=== PATIENT | female | born 1955 | race African-American/Black ===

== ENCOUNTER 2017-11-24 20:32 | Emergency (ER) | payer MEDICAID, OTHER ==
[~2017-11-24] VITALS: Ht 175.3 cm; Wt 83.0 kg
[2017-11-24] MEDS ORDERED: SODIUM CHLORIDE 0.9% 1,000 ML IV ONE (22:13)
[2017-11-24 22:56] LABS: BASOPHILS % 1.3 % (0.0-2.0); EOSINOPHILS % 4.1 % (0.0-5.0); HEMATOCRIT. 31.4 % (36.0-48.0); HEMOGLOBIN. 10.2 g/dL (12.0-16.0); LYMPHOCYTES % 25.6 % (20.0-50.0); MEAN CORPUSCULAR HEMOGLOBIN 30.3 pg (28.0-32.0); MEAN CORPUSCULAR VOLUME 93.3 fL (81.0-99.0); MEAN PLATELET VOLUME 8.2 fl (7.4-10.4); MONOCYTES % 8.1 % (2.0-8.0); NEUTROPHILS % 60.9 % (40.0-76.0); PLATELET 356 x1000/uL (130-400); RED BLOOD CELL COUNT 3.36 mill/uL (4.2-5.4); RED CELL DISTRIBUTION WIDTH 15.2 % (11.6-14.6)
[2017-11-24 23:03] LABS: CARBON DIOXIDE 21 mEq/L (21-32); CHLORIDE 108 mEq/L (98-107)
[2017-11-24] MEDS ORDERED: LORAZEPAM 0.5MG TABLET PO ONE (23:15)
[2017-11-24 23:53] LABS: CLARITY URINE CLEAR (CLEAR); COLOR URINE YELLOW (YELLOW); KETONES URINE NEGATIVE (NEGATIVE); LEUKOCYTE ESTERASE URINE 1+ (NEGATIVE); NITRITE URINE POSITIVE (NEGATIVE); OCCULT BLOOD URINE NEGATIVE (NEGATIVE); PROTEIN URINE NEGATIVE (NEGATIVE); SPECIFIC GRAVITY URINE 1.012 (1.005-1.030); UROBILINOGEN URINE 0.2 E.U./dL (0.2-1.0)
[2017-11-25] MEDS ORDERED: IPRATROPIUM/ALBUTEROL 0.5-3(2.5)MG/3ML NEB HHN NR (02:00)
[2017-11-25] MEDS ORDERED: CEFTRIAXONE 1 G PREMIX 50 ML IV NR (02:00)
[2017-11-25 05:55] VITALS: BP 104/63
== END 2017-11-25 06:02 | disposition home or self-care (01) ==
LOC: ER 20:52
DX: R04.0 Epistaxis (principal); D64.9 Anemia, unspecified; I10 Essential (primary) hypertension; N28.9 Disorder of kidney and ureter, unspecified; J44.9 Chronic obstructive pulmonary disease, unspecified; Z87.891 Personal history of nicotine dependence
CPT/HCPCS: 30901; 36415; 80053; 81001; 85025; 85610; 86850; 86900; 86901; 87077; 87086; 87186; 93005; 94640; 96361; 96365; 96366; 99285; J0696; J7030; J7620

== ENCOUNTER 2024-09-12 12:53 | Emergency (ER) | payer MEDICARE, MEDICAID ==
[~2024-09-12] VITALS: Ht 170.2 cm; Wt 74.0 kg
[2024-09-12 13:04] VITALS: BP 209/92; TEMP 98.6; O2SAT 91
[2024-09-12 13:08] VITALS: PULSE 113; O2SAT 91
== END 2024-09-12 23:13 | disposition left against medical advice (07) ==
LOC: ER 13:50
DX: R07.9 Chest pain, unspecified (principal); Z99.2 Dependence on renal dialysis; Z53.21 Procedure and treatment not carried out due to patient leaving prior to being seen by health care provider
CPT/HCPCS: 93005

== ENCOUNTER 2025-03-20 05:06 | Inpatient (IN) | payer MEDICARE, MEDICAID ==
[2025-03-20] VITALS (20 sets, daily range): BP systolic 116–190; BP diastolic 62–111; PULSE 71–95; RESP 16–29; TEMP 36.22512–36.9; O2SAT 89–100
[~2025-03-20] VITALS: Ht 160 cm; Wt 74.4 kg
[2025-03-20] MEDS ORDERED: METHYLPREDNISOLONE SOD SUCC 125MG/2ML (ACT-O-VIAL) IV STA (05:11)
[2025-03-20] MEDS ORDERED: IPRATROPIUM BROMIDE (0.02%) 0.5MG/2.5ML NEB HHN STA (05:25)
[2025-03-20] MEDS ORDERED: ALBUTEROL (0.083%) 2.5MG/3ML NEB HHN SCH (05:30)
[2025-03-20] MEDS: SODIUM CHLORIDE 0.9% (SEPSIS BOLUS) IV ONE (05:47)
[2025-03-20] MEDS: CEFTRIAXONE 1GM/50ML 50 ML IV ONE (05:50)
[2025-03-20 06:08] LABS: BASOPHILS % 0.6 % (0.0-2.0); DIFFERENTIAL COMMENT 0; EOSINOPHILS % 0.5 % (0.0-5.0); HEMATOCRIT. 23.1 % (36.0-48.0); HEMOGLOBIN. 7.6 g/dL (12.0-16.0); LYMPHOCYTES % 32.2 % (20.0-50.0); MEAN CORPUSCULAR HEMOGLOBIN 33.5 pg (28.0-32.0); MEAN CORPUSCULAR HGB CONC 33.1 g/dL (31.0-37.0); MEAN CORPUSCULAR VOLUME 101.3 fL (81.0-99.0); MEAN PLATELET VOLUME 9.3 fl (7.4-10.4); MONOCYTES % 3.7 % (2.0-8.0); PLATELET 211 x1000/uL (130-400); RED BLOOD CELL COUNT 2.28 mill/uL (4.2-5.4); RED CELL DISTRIBUTION WIDTH 15.2 % (11.6-14.6); WHITE BLOOD COUNT 8.8 x1000/uL (4.5-11.0)
[2025-03-20 06:17] LABS: CHLORIDE 99 mEq/L (98-107); POTASSIUM 4.6 mEq/L (3.5-5.1); SODIUM 140 mEq/L (136-145)
[2025-03-20 06:18] LABS: CALCIUM 8.3 mg/dL (8.7-10.4); CARBON DIOXIDE 24 mEq/L (21-32); PROTHROMBIN TIME 10.3 sec (9.6-11.0)
[2025-03-20 06:23] LABS: GLUCOSE 203 mg/dL (70-105); UREA NITROGEN BLOOD 52 mg/dL (9-23)
[2025-03-20] MEDS: IPRATROPIUM BROMIDE (0.02%) 0.5MG/2.5ML NEB HHN STA (06:41)
[2025-03-20] MEDS: AZITHROMYCIN 500MG/250ML 250 ML IV ONE (06:41)
[2025-03-20] MEDS: ALBUTEROL (0.083%) 2.5MG/3ML NEB HHN STA (06:52)
[2025-03-20 06:53] LABS: LACTIC ACID 4.7 mmol/L (0.4-2.0)
[2025-03-20 06:54] LABS: CREATININE 9.3 mg/dL (0.6-1.0); TROPONIN I HIGH SENSITIVITY 480 ng/L (3.0-34)
[2025-03-20] MEDS ORDERED: MAGNESIUM/ALUMINUM HYDROXIDE/SIMETHICONE 30ML UDC PO PRN (09:00)
[2025-03-20] MEDS ORDERED: IPRATROPIUM/ALBUTEROL 0.5-3(2.5)MG/3ML NEB HHN PRN (09:00)
[2025-03-20] MEDS ORDERED: DOCUSATE SODIUM 100MG CAPSULE PO PRN (09:00)
[2025-03-20] MEDS ORDERED: ACETAMINOPHEN 325MG TABLET PO PRN (09:00)
[2025-03-20] MEDS ORDERED: CLONIDINE 0.1MG TABLET PO PRN (09:00)
[2025-03-20] MEDS ORDERED: GUAIFENESIN 200MG/10ML SUGAR FREE UDC PO PRN (09:00)
[2025-03-20] MEDS ORDERED: ONDANSETRON HCL 4MG/2ML INJ IV PRN (09:00)
[2025-03-20] MEDS ORDERED: DIPHENHYDRAMINE 50MG/ML VIAL IV PRN (09:00)
[2025-03-20 09:38] LABS: BG BASE EXCESS -0.7 mmol/L (-2.0-3.0); BG CARBOXYHEMOGLOBIN 2.4 % (0.5-1.5); BG DEOXYHEMOGLOBIN 0.3 % (0.0-5.0); BG FRACTION INSPIRED OXYGEN 100; BG HCO3 ACT 23.6 mmol/L (21.0-28.0); BG METHEMOGLOBIN 0.1 % (0.5-1.5); BG OXYGEN SATURATION 99.7 % (94.0-98.0); BG OXYHEMOGLOBIN 97.2 % (94.0-98.0); BG PH 7.423 (7.350-7.450); BG PO2 340.6 mmHg (83.0-108.0); BG SAMPLE SITE LEFT RADIAL; BG VENT MODE MASK - BIPAP
[2025-03-20 09:49] LABS: HEPATITIS B SURFACE ANTIGEN NEGATIVE (Negative)
[2025-03-20] MEDS: HYDROCHLOROTHIAZIDE 25MG TABLET PO SCH (10:00)
[2025-03-20 10:10] LABS: HEPATITIS A AB IGM NEGATIVE (Negative); HEPATITIS B CORE AB IGM NEGATIVE (Negative)
[2025-03-20 10:11] LABS: HEPATITIS C AB NON REACTIVE (Neg) (Negative)
[2025-03-20] MEDS: IPRATROPIUM/ALBUTEROL 0.5-3(2.5)MG/3ML NEB HHN SCH (10:16)
[2025-03-20] MEDS: ACETAMINOPHEN 325MG TABLET PO PRN (12:22)
[2025-03-20] MEDS: FERROUS SULFATE 325MG TABLET PO SCH (13:00)
[2025-03-20] MEDS: METHYLPREDNISOLONE SOD SUCC 40MG/ML (ACT-O-VIAL) IV SCH (13:23)
[2025-03-20] MEDS: ENOXAPARIN 30MG/0.3ML SYR SUBCUT SCH (13:25)
[2025-03-20] MEDS: LISINOPRIL 10MG TABLET PO SCH (13:27)
[2025-03-20] MEDS: ASPIRIN 325MG EC TABLET PO SCH (13:38)
[2025-03-20] MEDS: CLONIDINE 0.1MG TABLET PO SCH (13:39)
[2025-03-20] MEDS: HYDRALAZINE HCL 50MG TABLET PO SCH (13:39)
[2025-03-20] MEDS: AMLODIPINE 5MG TABLET PO SCH (13:40)
[2025-03-20] MEDS: SILDENAFIL CITRATE 20MG TABLET PO SCH (13:40)
[2025-03-20] MEDS: FUROSEMIDE 40MG TABLET PO SCH ×2 (13:41→18:49)
[2025-03-20] MEDS ORDERED: DEXTROSE 50% WATER 50ML SYRINGE IV PRN (14:15)
[2025-03-20] MEDS: PANTOPRAZOLE SODIUM 40 MG/VIAL IV SCH (15:37)
[2025-03-20 16:34] LABS: CREATINE KINASE MB FRACTION 2.3 ng/mL (0.5-3.6)
[2025-03-20] MEDS: BLOOD SUGAR DIAGNOSTIC STRIP TEST SCH (17:37)
[2025-03-20] MEDS: INSULIN LISPRO 100 UNITS/ML SUBCUT SCH (18:51)
[2025-03-20 19:54] LABS: CREATINE KINASE MB FRACTION 1.7 ng/mL (0.5-3.6)
[2025-03-20] MEDS: ATORVASTATIN CALCIUM 40MG TABLET PO SCH (20:43)
[2025-03-20] MEDS: BUDESONIDE 0.5MG/2ML NEB HHN SCH (22:51)
[2025-03-21] VITALS (21 sets, daily range): BP systolic 97–152; BP diastolic 56–108; PULSE 72–96; RESP 15–32; TEMP 36.3–37.11408; O2SAT 91–100
[2025-03-21 01:52] LABS: CREATINE KINASE MB FRACTION 0.9 ng/mL (0.5-3.6)
[2025-03-21 06:03] LABS: MEAN CORPUSCULAR HEMOGLOBIN 32.9 pg (28.0-32.0); MEAN CORPUSCULAR HGB CONC 33.2 g/dL (31.0-37.0); MEAN CORPUSCULAR VOLUME 99.2 fL (81.0-99.0); MEAN PLATELET VOLUME 9.5 fl (7.4-10.4); PLATELET 155 x1000/uL (130-400); RED BLOOD CELL COUNT 2.04 mill/uL (4.2-5.4); RED CELL DISTRIBUTION WIDTH 16.2 % (11.6-14.6); WHITE BLOOD COUNT 3.7 x1000/uL (4.5-11.0)
[2025-03-21 06:15] LABS: DIFFERENTIAL COMMENT 1
[2025-03-21 06:16] LABS: HEMATOCRIT. 20.3 % (36.0-48.0); HEMOGLOBIN. 6.7 g/dL (12.0-16.0)
[2025-03-21 07:05] LABS: POTASSIUM 4.8 mEq/L (3.5-5.1)
[2025-03-21 07:06] LABS: CALCIUM 7.9 mg/dL (8.7-10.4)
[2025-03-21] MEDS: CEFTRIAXONE 1GM/50ML 50 ML IV SCH (07:10)
[2025-03-21 07:14] LABS: THYROID STIMULATING HORMONE 0.26 uIU/mL (0.55-4.78)
[2025-03-21 07:25] LABS: CREATININE 7.4 mg/dL (0.6-1.0)
[2025-03-21 07:35] LABS: T4 FREE 1.28 ng/dL (0.89-1.76)
[2025-03-21] MEDS: AZITHROMYCIN 500MG/250ML 250 ML IV SCH (08:30)
[2025-03-21] MEDS: LISINOPRIL 20MG TABLET PO SCH (08:31)
[2025-03-21] MEDS: METOPROLOL SUCCINATE 50MG ER TABLET PO SCH (08:32)
[2025-03-21] MEDS: AMLODIPINE 10MG TABLET PO SCH (08:32)
[2025-03-21] MEDS: ASPIRIN 81MG TABLET PO SCH (08:33)
[2025-03-21] MEDS ORDERED: AZITHROMYCIN 500MG/250ML 250 ML IV SCH (09:00)
[2025-03-21 15:07] LABS: IRON 57 ug/dL (50-170)
[2025-03-21 15:10] LABS: TOTAL IRON BINDING CAPACITY 354 ug/dl (250-425)
[2025-03-21 15:52] LABS: MICROCYTOSIS 1+; PLATELET ESTIMATE NORMAL
[2025-03-21 18:13] LABS: HEMATOCRIT 23.7 % (36.0-48.0); HEMOGLOBIN 8.1 g/dL (12.0-16.0)
[2025-03-21 18:29] LABS: FERRITIN 917 ng/mL (10-291)
[2025-03-21 18:30] LABS: FOLIC ACID (FOLATE) SERUM 6.06 ng/mL (>5.38); VITAMIN B12 SERUM 567 pg/mL (211-911)
[2025-03-21] MEDS: METHYLPREDNISOLONE SOD SUCC 40MG/ML (ACT-O-VIAL) IV SCH (21:37)
[2025-03-22] VITALS (17 sets, daily range): BP systolic 102–134; BP diastolic 54–75; PULSE 67–102; RESP 15–20; TEMP 36.55848–37.1; O2SAT 93–100
[2025-03-22 05:48] LABS: HEMATOCRIT 24.5 % (36.0-48.0); HEMOGLOBIN 8.4 g/dL (12.0-16.0)
[2025-03-22 05:51] LABS: CALCIUM 7.9 mg/dL (8.7-10.4); CARBON DIOXIDE 25 mEq/L (21-32); CHLORIDE 95 mEq/L (98-107); POTASSIUM 5.6 mEq/L (3.5-5.1); SODIUM 133 mEq/L (136-145)
[2025-03-22 05:56] LABS: GLUCOSE 154 mg/dL (70-105)
[2025-03-22 05:57] LABS: UREA NITROGEN BLOOD 62 mg/dL (9-23)
[2025-03-22 05:59] LABS: PHOSPHORUS 3.7 mg/dL (2.5-4.9)
[2025-03-22 06:47] LABS: CREATININE 9.3 mg/dL (0.6-1.0)
[2025-03-22] MEDS ORDERED: REV20 PO (11:50)
[2025-03-22] MEDS ORDERED: FURO40TA5 PO (11:50)
[2025-03-22] MEDS ORDERED: METO-385 PO (11:50)
[2025-03-22] MEDS ORDERED: HYDR50TA39 PO (11:50)
[2025-03-22] MEDS ORDERED: ASPI-1160 PO (11:50)
[2025-03-22] MEDS ORDERED: AMLO10TA80 PO (11:50)
[2025-03-22] MEDS ORDERED: FERR-63 PO (11:50)
[2025-03-22] MEDS ORDERED: LIP40 PO (11:50)
[2025-03-22] MEDS ORDERED: CLON0.1T PO (11:50)
[2025-03-22] MEDS ORDERED: PANT40TA51 MT (11:50)
[2025-03-22] MEDS ORDERED: HYDR25TA PO (11:50)
[2025-03-22] MEDS ORDERED: LISI20TA31 PO (11:50)
[2025-03-22] MEDS ORDERED: PULM50 HHN (11:50)
[2025-03-22] MEDS ORDERED: P20 MT (17:32)
[2025-03-22 18:05] LABS: CALCIUM 7.8 mg/dL (8.7-10.4)
[2025-03-22 18:06] LABS: CREATININE 4.9 mg/dL (0.6-1.0); POTASSIUM 3.5 mEq/L (3.5-5.1)
[2025-03-22] MEDS ORDERED: EPOETIN ALFA-EPBX 4,000 UNIT/ML VIAL SUBCUT SCH (21:00)
== END 2025-03-22 18:16 | disposition home health service (06) | DRG 280 ==
LOC: ER 05:06 → 5EST 07:25 → ENRESERV 07:59
PROVIDERS: ADMIT Hospitalist; ATTEND Hospitalist
PROC: 5A09357 Assistance with Respiratory Ventilation, Less than 24 Consecutive Hours, Continuous Positive Airway Pressure (ICD-10-PCS; principal; 2025-03-20)
PROC: 5A1D70Z Performance of Urinary Filtration, Intermittent, Less than 6 Hours Per Day (ICD-10-PCS; 2025-03-20)
PROC: 30233N1 Transfusion of Nonautologous Red Blood Cells into Peripheral Vein, Percutaneous Approach (ICD-10-PCS; 2025-03-21)
PROC: 5A1D70Z Performance of Urinary Filtration, Intermittent, Less than 6 Hours Per Day (ICD-10-PCS; 2025-03-22)
DX: I13.2 Hypertensive heart and chronic kidney disease with heart failure and with stage 5 chronic kidney disease, or end stage renal disease (principal); I50.33 Acute on chronic diastolic (congestive) heart failure; I21.A1 Myocardial infarction type 2; J96.01 Acute respiratory failure with hypoxia; J18.9 Pneumonia, unspecified organism; N18.6 End stage renal disease; J44.1 Chronic obstructive pulmonary disease with (acute) exacerbation; J44.0 Chronic obstructive pulmonary disease with (acute) lower respiratory infection; I16.1 Hypertensive emergency; E87.20 Acidosis, unspecified; E11.65 Type 2 diabetes mellitus with hyperglycemia; E87.5 Hyperkalemia; I25.10 Atherosclerotic heart disease of native coronary artery without angina pectoris; E83.42 Hypomagnesemia; E83.51 Hypocalcemia; E11.22 Type 2 diabetes mellitus with diabetic chronic kidney disease; I27.20 Pulmonary hypertension, unspecified; D53.9 Nutritional anemia, unspecified; Z86.73 Personal history of transient ischemic attack (TIA), and cerebral infarction without residual deficits; Z99.2 Dependence on renal dialysis; Z95.2 Presence of prosthetic heart valve; Z99.81 Dependence on supplemental oxygen
CPT/HCPCS: 36415; 36600; 71045; 80048; 80061; 82375; 82550; 82553; 82607; 82728; 82746; 82805; 82962; 83036; 83540; 83550; 83605; 83735; 83880; 84100; 84145; 84439; 84443; 84484; 85014; 85018; 85025; 86705; 86709; 86850; 86900; 86920; 87340; 90935; 93005; 94070; 94640; 94660; 94664; 99291; J0456; J0696; J0885; J1650; J1815; J2470; J2919; J7030; J7626; P9016

== ENCOUNTER 2025-06-13 02:33 | Inpatient (IN) | payer MEDICARE, MEDICAID ==
[~2025-06-13] VITALS: Ht 170.2 cm; Wt 66.5 kg
[2025-06-13] VITALS (79 sets, daily range): BP systolic 107–169; BP diastolic 55–90; PULSE 60–120; RESP 10–24; TEMP 36.1–36.89184; O2SAT 92–100
[~2025-06-13 02:33] MED LIST: ACET-2708 MT; AMLO10TA80 PO; ASPI-1160 PO; BUDE0.5A3 NEB; CLON0.1T PO; FERR-63 PO; FURO40TA5 MT; FURO40TA5 PO; HYDR25TA PO; HYDR50TA39 PO; LIP40 PO; LISI20TA31 PO; METH4TAB95 MT; METO-385 PO; P20 MT; PANT40TA51 MT; PROT40 MT; PULM50 HHN; REV20 PO
[2025-06-13] MEDS: ETOMIDATE 2MG/ML 10ML VIAL IV ONE (02:38)
[2025-06-13] MEDS: ROCURONIUM BROMIDE 10MG/ML VIAL 5ML IV ONE (02:38)
[2025-06-13] MEDS ORDERED: PIPERACILLIN/TAZO 3.375G/50ML 50 ML IV STA (02:46)
[2025-06-13] MEDS: PROPOFOL 10MG/ML 100ML 100 ML IV SCH (02:53)
[2025-06-13] MEDS ORDERED: FENTANYL 2500MCG/250ML PMX 250 ML IV SCH (03:00)
[2025-06-13] MEDS: METHYLPREDNISOLONE SOD SUCC 125MG/2ML (ACT-O-VIAL) IV ONE (03:00)
[2025-06-13 03:27] LABS: BG BASE EXCESS -7.1 mmol/L (-2.0-3.0); BG CARBOXYHEMOGLOBIN 0.7 % (0.5-1.5); BG DEOXYHEMOGLOBIN 0.3 % (0.0-5.0); BG FRACTION INSPIRED OXYGEN 100; BG HCO3 ACT 21.7 mmol/L (21.0-28.0); BG METHEMOGLOBIN 0.1 % (0.5-1.5); BG OXYGEN SATURATION 99.7 % (94.0-98.0); BG OXYHEMOGLOBIN 98.9 % (94.0-98.0); BG PCO2 60.5 mmHg (32.0-45.0); BG PEEP (cmH2O) 5.0 cmH2O; BG PH 7.173 (7.350-7.450); BG PO2 489.3 mmHg (83.0-108.0); BG SAMPLE SITE RIGHT RADIAL; BG TIDAL VOLUME(mL) 450.0 mL; BG TOTAL HEMOGLOBIN 11.2 g/dL (12.0-16.0); BG VENT MODE VENT - AC; BG VENT RATE 18.0 set
[2025-06-13 03:27] LABS: BASOPHILS % 0.4 % (0.0-2.0); EOSINOPHILS % 0.7 % (0.0-5.0); HEMATOCRIT. 32.1 % (36.0-48.0); HEMOGLOBIN. 10.3 g/dL (12.0-16.0); LYMPHOCYTES % 21.4 % (20.0-50.0); MEAN PLATELET VOLUME 8.1 fl (7.4-10.4); MONOCYTES % 3.6 % (2.0-8.0); NEUTROPHILS % 73.9 % (40.0-76.0); PLATELET 286 x1000/uL (130-400); RED BLOOD CELL COUNT 3.14 mill/uL (4.2-5.4); RED CELL DISTRIBUTION WIDTH 20.2 % (11.6-14.6)
[2025-06-13] MEDS: FENTANYL 2500MCG/250ML PMX 250 ML IV SCH (03:36)
[2025-06-13 03:39] LABS: INR 1.0
[2025-06-13] MEDS: MAGNESIUM 2 G PREMIX 50 ML IV ONE (03:53)
[2025-06-13 04:18] LABS: ASPARTATE AMINOTRANSFERASE 35 IU/L (<34); BILIRUBIN DIRECT 0.2 mg/dL (<=3.0)
[2025-06-13 04:19] LABS: BILIRUBIN TOTAL 0.3 mg/dL (0.1-1.0); PROTEIN TOTAL 7.2 g/dL (6.0-8.3)
[2025-06-13 04:28] LABS: TROPONIN I HIGH SENSITIVITY 232 ng/L (3.0-34); UREA NITROGEN BLOOD 107 mg/dL (9-23)
[2025-06-13 04:29] LABS: CREATININE 13.3 mg/dL (0.6-1.0)
[2025-06-13] MEDS: VANCOMYCIN 1.5GM PMX (XELLIA) 300 ML IV NR (04:53)
[2025-06-13] MEDS: PIPERACILLIN/TAZO 3.375G/50ML 50 ML IV NR (04:59)
[2025-06-13] MEDS ORDERED: IPRATROPIUM/ALBUTEROL 0.5-3(2.5)MG/3ML NEB NEB PRN (05:15)
[2025-06-13 05:33] LABS: BG BASE EXCESS -8.0 mmol/L (-2.0-3.0); BG CARBOXYHEMOGLOBIN 0.8 % (0.5-1.5); BG DEOXYHEMOGLOBIN 5.6 % (0.0-5.0); BG FRACTION INSPIRED OXYGEN 55; BG HCO3 ACT 19.0 mmol/L (21.0-28.0); BG METHEMOGLOBIN 0.0 % (0.5-1.5); BG OXYGEN SATURATION 94.4 % (94.0-98.0); BG OXYHEMOGLOBIN 93.6 % (94.0-98.0); BG PCO2 44.7 mmHg (32.0-45.0); BG PEEP (cmH2O) 5.0 cmH2O; BG PH 7.246 (7.350-7.450); BG PO2 90.2 mmHg (83.0-108.0); BG SAMPLE SITE LEFT BRACHIAL; BG TIDAL VOLUME(mL) 450.0 mL; BG TOTAL HEMOGLOBIN 11.0 g/dL (12.0-16.0); BG VENT MODE VENT - AC; BG VENT RATE 20.0 set
[2025-06-13] MEDS: METHYLPREDNISOLONE SOD SUCC 125MG/2ML (ACT-O-VIAL) IV NR (05:39)
[2025-06-13 06:29] LABS: TROPONIN I HIGH SENSITIVITY 218 ng/L (3.0-34)
[2025-06-13] MEDS: SODIUM CHLORIDE 0.9% 3ML FLUSH IVF SCH (07:49)
[2025-06-13] MEDS: CEFTRIAXONE 2GM/50ML 50 ML IV SCH (07:49)
[2025-06-13] MEDS ORDERED: ACETAMINOPHEN 325MG TABLET PO PRN (10:00)
[2025-06-13] MEDS ORDERED: ETOMIDATE 2MG/ML 10ML VIAL IV ONE (10:07)
[2025-06-13] MEDS ORDERED: ROCURONIUM BROMIDE 10MG/ML VIAL 5ML IV ONE (10:07)
[2025-06-13] MEDS ORDERED: DEXTROSE 50% WATER 50ML SYRINGE IV PRN (10:15)
[2025-06-13] MEDS: FUROSEMIDE 40MG/4ML VIAL IVP SCH (11:11)
[2025-06-13] MEDS: ENOXAPARIN 30MG/0.3ML SYR SUBCUT SCH (11:12)
[2025-06-13] MEDS: IPRATROPIUM/ALBUTEROL 0.5-3(2.5)MG/3ML NEB HHN SCH (11:51)
[2025-06-13] MEDS: INSULIN LISPRO 100 UNITS/ML SUBCUT SCH (12:00)
[2025-06-13] MEDS: BLOOD SUGAR DIAGNOSTIC STRIP TEST SCH (12:11)
[2025-06-13 12:21] LABS: TROPONIN I HIGH SENSITIVITY 209 ng/L (3.0-34)
[2025-06-13 12:59] LABS: HEPATITIS A AB IGM NEGATIVE (Negative)
[2025-06-13 13:00] LABS: HEPATITIS B CORE AB IGM NEGATIVE (Negative); HEPATITIS C AB NON REACTIVE (Neg) (Negative)
[2025-06-13] MEDS: PROPOFOL 10MG/ML 100ML 100 ML IV PRN (13:43)
[2025-06-13] MEDS: METHYLPREDNISOLONE SOD SUCC 125MG/2ML (ACT-O-VIAL) IV SCH (14:59)
[2025-06-13] MEDS ORDERED: CEFEPIME 2,000 MG in DEXT 5% WATER 100 ML IV SCH (15:30)
[2025-06-13] MEDS ORDERED: AZITHROMYCIN 250 MG in DEXT 5% WATER 250 ML IV SCH (15:30)
[2025-06-13 15:39] LABS: CREATINE KINASE MB FRACTION 3.1 ng/mL (0.5-3.6)
[2025-06-13 15:42] LABS: TROPONIN I HIGH SENSITIVITY 241.0 ng/L (3.0-34)
[2025-06-13] MEDS: CEFEPIME 1GM PREMIX 50ML IV SCH (17:29)
[2025-06-13] MEDS: AZITHROMYCIN 500MG in D5W 250ML IV SCH (17:29)
[2025-06-13] MEDS: FAMOTIDINE 20MG TABLET PO SCH (21:32)
[2025-06-14] VITALS (105 sets, daily range): BP systolic 105–166; BP diastolic 53–96; PULSE 59–80; RESP 15–27; TEMP 36.3–36.8; O2SAT 93–100
[2025-06-14 01:06] LABS: CREATINE KINASE MB FRACTION 2.8 ng/mL (0.5-3.6)
[2025-06-14 07:21] LABS: BASOPHILS % 0.2 % (0.0-2.0); EOSINOPHILS % 0.0 % (0.0-5.0); HEMATOCRIT. 28.3 % (36.0-48.0); HEMOGLOBIN. 9.2 g/dL (12.0-16.0); LYMPHOCYTES % 9.7 % (20.0-50.0); MEAN PLATELET VOLUME 8.9 fl (7.4-10.4); MONOCYTES % 1.9 % (2.0-8.0); NEUTROPHILS % 88.2 % (40.0-76.0); PLATELET 216 x1000/uL (130-400); RED BLOOD CELL COUNT 2.76 mill/uL (4.2-5.4); RED CELL DISTRIBUTION WIDTH 20.2 % (11.6-14.6)
[2025-06-14 07:30] LABS: UREA NITROGEN BLOOD 65 mg/dL (9-23)
[2025-06-14 07:32] LABS: PHOSPHORUS 7.5 mg/dL (2.5-4.9)
[2025-06-14 07:37] LABS: CREATININE 9.7 mg/dL (0.6-1.0)
[2025-06-14 08:44] LABS: BG BASE EXCESS -3.9 mmol/L (-2.0-3.0); BG CARBOXYHEMOGLOBIN 1.0 % (0.5-1.5); BG DEOXYHEMOGLOBIN 4.9 % (0.0-5.0); BG FRACTION INSPIRED OXYGEN 45; BG HCO3 ACT 19.9 mmol/L (21.0-28.0); BG METHEMOGLOBIN 0.3 % (0.5-1.5); BG OXYGEN SATURATION 95.0 % (94.0-98.0); BG OXYHEMOGLOBIN 93.8 % (94.0-98.0); BG PCO2 31.5 mmHg (32.0-45.0); BG PEEP (cmH2O) 5.0 cmH2O; BG PH 7.418 (7.350-7.450); BG PO2 82.2 mmHg (83.0-108.0); BG SAMPLE SITE RIGHT RADIAL; BG TIDAL VOLUME(mL) 500.0 mL; BG TOTAL HEMOGLOBIN 9.4 g/dL (12.0-16.0); BG TOTAL RESPIRATORY RATE 20 b/min; BG VENT MODE VENT - AC; BG VENT RATE 20.0 set
[2025-06-14] MEDS: CALCIUM ACETATE 667MG CAPSULE PO SCH (11:47)
[2025-06-14] MEDS: PROPOFOL 10MG/ML 100ML 100 ML IV PRN (17:39)
[2025-06-14] MEDS ORDERED: PROPOFOL 10MG/ML 100ML 100 ML IV PRN (22:00)
[2025-06-15] VITALS (107 sets, daily range): BP systolic 66–168; BP diastolic 49–80; PULSE 58–111; RESP 11–28; TEMP 36.1–37.1; O2SAT 93–100
[2025-06-15] MEDS: FENTANYL 2500MCG/250ML PMX 250 ML IV PRN (05:36)
[2025-06-15 06:13] LABS: HEMATOCRIT. 27.6 % (36.0-48.0); HEMOGLOBIN. 8.8 g/dL (12.0-16.0); MEAN PLATELET VOLUME 8.5 fl (7.4-10.4); PLATELET 227 x1000/uL (130-400); RED BLOOD CELL COUNT 2.68 mill/uL (4.2-5.4); RED CELL DISTRIBUTION WIDTH 20.3 % (11.6-14.6)
[2025-06-15 06:23] LABS: TRIGLYCERIDE 218.0 mg/dL (0-150); UREA NITROGEN BLOOD 74.0 mg/dL (9-23)
[2025-06-15 06:39] LABS: CREATININE 11.1 mg/dL (0.6-1.0)
[2025-06-15 09:34] LABS: BAND% 3.0 % (1.0-6.0); LYMPHOCYTES % MANUAL 11.0 % (20.0-60.0); MONOCYTES % MANUAL 2.0 % (2.0-8.0); NEUTROPHILS % MANUAL 84.0 % (45.0-75.0); PLATELET ESTIMATE NORMAL
[2025-06-15] MEDS ORDERED: ALBUTEROL (0.083%) 2.5MG/3ML NEB HHN NR (10:00)
[2025-06-15] MEDS: CALCIUM GLUCONATE 100MG/ML 10ML VIAL IV NR (10:50)
[2025-06-15] MEDS: SODIUM BICARBONATE 8.4% 50MEQ/50ML SYR IV NR (10:51)
[2025-06-15] MEDS: EPOETIN ALFA-EPBX 4,000 UNITS/ML VIAL SUBCUT SCH (13:49)
[2025-06-15] MEDS: METHYLPREDNISOLONE SOD SUCC 40MG/ML (ACT-O-VIAL) IV SCH (21:43)
[2025-06-15] MEDS ORDERED: PROPOFOL 10MG/ML 100ML 100 ML IV PRN (23:15)
[2025-06-16] VITALS (108 sets, daily range): BP systolic 61–155; BP diastolic 48–136; PULSE 79–118; RESP 9–27; TEMP 36.8–37.1; O2SAT 93–100
[2025-06-16] MEDS ORDERED: PHENYLEPHRINE 50 MG in DEXT 5% WATER 245 ML IV PRN (04:45)
[2025-06-16] MEDS: MIDAZOLAM 100MG/100ML PMX 100 ML IV PRN (05:51)
[2025-06-16 10:03] LABS: BG BASE EXCESS -2.5 mmol/L (-2.0-3.0); BG CARBOXYHEMOGLOBIN 1.1 % (0.5-1.5); BG DEOXYHEMOGLOBIN 3.1 % (0.0-5.0); BG FRACTION INSPIRED OXYGEN 45; BG HCO3 ACT 22.1 mmol/L (21.0-28.0); BG METHEMOGLOBIN 0.3 % (0.5-1.5); BG OXYGEN SATURATION 96.9 % (94.0-98.0); BG OXYHEMOGLOBIN 95.5 % (94.0-98.0); BG PCO2 37.8 mmHg (32.0-45.0); BG PEEP (cmH2O) 5.0 cmH2O; BG PH 7.385 (7.350-7.450); BG PO2 95.1 mmHg (83.0-108.0); BG SAMPLE SITE RIGHT RADIAL; BG TIDAL VOLUME(mL) 500.0 mL; BG TOTAL HEMOGLOBIN 13.2 g/dL (12.0-16.0); BG VENT MODE VENT - AC; BG VENT RATE 20.0 set
[2025-06-16] MEDS: PHENYLEPHRINE 50MG/250ML PMX IV PRN (10:25)
[2025-06-16 11:45] LABS: PLATELET 238 x1000/uL (130-400); RED BLOOD CELL COUNT 3.68 mill/uL (4.2-5.4); RED CELL DISTRIBUTION WIDTH 21.2 % (11.6-14.6)
[2025-06-16 12:00] LABS: TRIGLYCERIDE 173 mg/dL (0-150); UREA NITROGEN BLOOD 56 mg/dL (9-23)
[2025-06-16 12:19] LABS: CREATININE 7.8 mg/dL (0.6-1.0)
[2025-06-16 12:21] LABS: PHOSPHORUS 8.8 mg/dL (2.5-4.9)
[2025-06-16] MEDS: SEVELAMER CARBONATE 800 MG TABLET PO SCH (14:29)
[2025-06-17] VITALS (107 sets, daily range): BP systolic 92–174; BP diastolic 51–113; PULSE 53–133; RESP 10–24; TEMP 36.44736–37.4; O2SAT 92–100
[2025-06-17 04:27] LABS: HEMATOCRIT. 34.2 % (36.0-48.0); HEMOGLOBIN. 10.6 g/dL (12.0-16.0); MEAN PLATELET VOLUME 7.9 fl (7.4-10.4); PLATELET 133 x1000/uL (130-400); RED BLOOD CELL COUNT 3.28 mill/uL (4.2-5.4); RED CELL DISTRIBUTION WIDTH 21.2 % (11.6-14.6)
[2025-06-17 04:42] LABS: UREA NITROGEN BLOOD 81.0 mg/dL (9-23)
[2025-06-17 05:07] LABS: CREATININE 8.5 mg/dL (0.6-1.0)
[2025-06-17 11:25] LABS: BG BASE EXCESS -2.1 mmol/L (-2.0-3.0); BG CARBOXYHEMOGLOBIN 0.7 % (0.5-1.5); BG DEOXYHEMOGLOBIN 7.9 % (0.0-5.0); BG FRACTION INSPIRED OXYGEN 40; BG HCO3 ACT 23.2 mmol/L (21.0-28.0); BG METHEMOGLOBIN 0.3 % (0.5-1.5); BG OXYGEN SATURATION 92.0 % (94.0-98.0); BG OXYHEMOGLOBIN 91.1 % (94.0-98.0); BG PCO2 41.5 mmHg (32.0-45.0); BG PEEP (cmH2O) 5.0 cmH2O; BG PH 7.365 (7.350-7.450); BG PO2 69.8 mmHg (83.0-108.0); BG SAMPLE SITE RIGHT RADIAL; BG TIDAL VOLUME(mL) 500.0 mL; BG TOTAL HEMOGLOBIN 11.9 g/dL (12.0-16.0); BG VENT MODE VENT - AC; BG VENT RATE 20.0 set
[2025-06-17] MEDS: EPOETIN ALFA-EPBX 4,000 UNITS/ML VIAL SUBCUT SCH (14:46)
[2025-06-17 15:58] LABS: BAND% 2.0 % (1.0-6.0); LYMPHOCYTES % MANUAL 2.0 % (20.0-60.0); MONOCYTES % MANUAL 1.0 % (2.0-8.0); NEUTROPHILS % MANUAL 95.0 % (45.0-75.0); PLATELET ESTIMATE NORMAL
[2025-06-17 17:31] LABS: BG BASE EXCESS 1.7 mmol/L (-2.0-3.0); BG CARBOXYHEMOGLOBIN 0.8 % (0.5-1.5); BG DEOXYHEMOGLOBIN 4.6 % (0.0-5.0); BG FRACTION INSPIRED OXYGEN 40; BG HCO3 ACT 25.4 mmol/L (21.0-28.0); BG METHEMOGLOBIN 0.3 % (0.5-1.5); BG OXYGEN SATURATION 95.3 % (94.0-98.0); BG OXYHEMOGLOBIN 94.3 % (94.0-98.0); BG PCO2 36.5 mmHg (32.0-45.0); BG PEEP (cmH2O) 5.0 cmH2O; BG PH 7.461 (7.350-7.450); BG PO2 79.7 mmHg (83.0-108.0); BG SAMPLE SITE RIGHT RADIAL; BG TOTAL HEMOGLOBIN 10.3 g/dL (12.0-16.0); BG VENT MODE VENT - CPAP
[2025-06-17] MEDS ORDERED: VANCOMYCIN 750MG/150ML (BAXTER) IV SCH (18:00)
[2025-06-17] MEDS: HYDRALAZINE 20MG/ML VIAL IV PRN (20:15)
[2025-06-17] MEDS: CLONIDINE 0.1MG TABLET PO PRN (21:24)
[2025-06-18] VITALS (93 sets, daily range): BP systolic 136–182; BP diastolic 58–86; PULSE 81–107; RESP 14–22; TEMP 36.7–37.4; O2SAT 93–100
[2025-06-18] MEDS: HYDROCODONE/ACETAMINOPHEN 5/325MG TABLET PO SCH (00:02)
[2025-06-18] MEDS: AMLODIPINE 10MG TABLET PO SCH (00:03)
[2025-06-18 05:20] LABS: HEMATOCRIT. 28.5 % (36.0-48.0); HEMOGLOBIN. 9.2 g/dL (12.0-16.0); MEAN PLATELET VOLUME 8.2 fl (7.4-10.4); PLATELET 136 x1000/uL (130-400); RED BLOOD CELL COUNT 2.80 mill/uL (4.2-5.4); RED CELL DISTRIBUTION WIDTH 20.6 % (11.6-14.6)
[2025-06-18 06:42] LABS: UREA NITROGEN BLOOD 58.0 mg/dL (9-23)
[2025-06-18 06:50] LABS: CREATININE 6.6 mg/dL (0.6-1.0)
[2025-06-18] MEDS: METOCLOPRAMIDE HCL 5MG TABLET PO SCH (13:11)
[2025-06-18 13:53] LABS: BAND% 2.0 % (1.0-6.0); LYMPHOCYTES % MANUAL 4.0 % (20.0-60.0); MONOCYTES % MANUAL 3.0 % (2.0-8.0); NEUTROPHILS % MANUAL 91.0 % (45.0-75.0)
[2025-06-18 13:54] LABS: PLATELET ESTIMATE NORMAL
[2025-06-18] MEDS: IPRATROPIUM/ALBUTEROL 0.5-3(2.5)MG/3ML NEB HHN SCH (20:48)
[2025-06-18] MEDS: HYDRALAZINE HCL 50MG TABLET PO SCH (20:55)
[2025-06-18] MEDS ORDERED: EPOETIN ALFA-EPBX 4,000 UNITS/ML VIAL SUBCUT SCH (21:00)
[2025-06-18] MEDS: EPOETIN ALFA-EPBX 4,000 UNITS/ML VIAL SUBCUT SCH (21:04)
[2025-06-19] VITALS (23 sets, daily range): BP systolic 143–187; BP diastolic 63–97; PULSE 76–96; RESP 12–18; TEMP 36.55848–37.6; O2SAT 93–100
[2025-06-19 06:10] LABS: UREA NITROGEN BLOOD 88 mg/dL (9-23)
[2025-06-19 06:15] LABS: CREATININE 9.1 mg/dL (0.6-1.0)
[2025-06-19 06:31] LABS: BASOPHILS % 0.1 % (0.0-2.0); EOSINOPHILS % 0.8 % (0.0-5.0); HEMATOCRIT. 25.0 % (36.0-48.0); HEMOGLOBIN. 8.4 g/dL (12.0-16.0); LYMPHOCYTES % 12.1 % (20.0-50.0); MEAN PLATELET VOLUME 8.3 fl (7.4-10.4); MONOCYTES % 6.3 % (2.0-8.0); NEUTROPHILS % 80.7 % (40.0-76.0); PLATELET 123 x1000/uL (130-400); RED BLOOD CELL COUNT 2.51 mill/uL (4.2-5.4); RED CELL DISTRIBUTION WIDTH 19.7 % (11.6-14.6)
[2025-06-19] MEDS: PREDNISONE 20MG TABLET PO SCH (08:33)
[2025-06-19] MEDS: ISOSORBIDE MONONITRATE 30MG TABLET SR 24HR PO SCH (10:15)
[2025-06-19] MEDS: AMLODIPINE 10MG TABLET PO NR (15:58)
[2025-06-19] MEDS: ACETAMINOPHEN 325MG TABLET PO PRN (20:42)
[2025-06-19] MEDS: HYDRALAZINE HCL 100MG TABLET PO SCH (21:32)
[2025-06-20] VITALS (15 sets, daily range): BP systolic 150–182; BP diastolic 53–100; PULSE 79–112; RESP 13–29; TEMP 36.3–37.9; O2SAT 93–100
[2025-06-20] MEDS ORDERED: AMLODIPINE 10MG TABLET PO SCH (09:00)
[2025-06-20] MEDS: GUAIFENESIN 600MG ER TABLET PO SCH (13:27)
[2025-06-20] MEDS: DOCUSATE SODIUM 100MG CAPSULE PO PRN (18:13)
[2025-06-21] VITALS (74 sets, daily range): BP systolic 115–256; BP diastolic 52–145; PULSE 79–127; RESP 11–32; TEMP 36.55848–37.1; O2SAT 91–100
[2025-06-21] MEDS: CARVEDILOL 6.25 MG TABLET PO SCH (02:45)
[2025-06-21] MEDS: LABETALOL 5MG/ML 4ML INJ IV NR (02:45)
[2025-06-21] MEDS: ISOSORBIDE MONONITRATE 30MG TABLET SR 24HR PO NR (02:45)
[2025-06-21] MEDS: MINOXIDIL 2.5MG TABLET PO SCH (04:00)
[2025-06-21] MEDS: NICARDIPINE 40MG/200ML PREMIX 200 ML IV PRN (05:30)
[2025-06-21] MEDS: ISOSORBIDE MONONITRATE 60MG TABLET SR 24HR PO SCH (09:02)
[2025-06-21 11:50] LABS: HEMATOCRIT. 26.6 % (36.0-48.0); HEMOGLOBIN. 8.7 g/dL (12.0-16.0); MEAN PLATELET VOLUME 8.1 fl (7.4-10.4); PLATELET 117 x1000/uL (130-400); RED BLOOD CELL COUNT 2.62 mill/uL (4.2-5.4); RED CELL DISTRIBUTION WIDTH 19.1 % (11.6-14.6)
[2025-06-21 12:14] LABS: UREA NITROGEN BLOOD 92 mg/dL (9-23)
[2025-06-21 12:16] LABS: CREATININE 10.1 mg/dL (0.6-1.0)
[2025-06-21 12:17] LABS: PHOSPHORUS 8.8 mg/dL (2.5-4.9)
[2025-06-21] MEDS: FOLIC ACID 1MG TABLET PO SCH (16:24)
[2025-06-21 16:43] LABS: BG BASE EXCESS 4.1 mmol/L (-2.0-3.0); BG CARBOXYHEMOGLOBIN 1.1 % (0.5-1.5); BG DEOXYHEMOGLOBIN 8.1 % (0.0-5.0); BG FLOW(L/min) 4.00 L/min; BG FRACTION INSPIRED OXYGEN 36; BG HCO3 ACT 28.0 mmol/L (21.0-28.0); BG METHEMOGLOBIN 0.0 % (0.5-1.5); BG OXYGEN SATURATION 91.8 % (94.0-98.0); BG OXYHEMOGLOBIN 90.8 % (94.0-98.0); BG PCO2 39.7 mmHg (32.0-45.0); BG PH 7.467 (7.350-7.450); BG PO2 68.4 mmHg (83.0-108.0); BG SAMPLE SITE LEFT RADIAL; BG TOTAL HEMOGLOBIN 10.1 g/dL (12.0-16.0); BG VENT MODE NASAL CANNULA
[2025-06-21] MEDS: THIAMINE HCL 100MG TABLET PO SCH (19:19)
[2025-06-21 19:27] LABS: LYMPHOCYTES % MANUAL 3.0 % (20.0-60.0); MONOCYTES % MANUAL 5.0 % (2.0-8.0); MYELOCYTES % 1.0 % (0-0); NEUTROPHILS % MANUAL 91.0 % (45.0-75.0); PLATELET ESTIMATE SLIGHTLY DECREASED
[2025-06-21] MEDS: METHYLPREDNISOLONE SOD SUCC 40MG/ML (ACT-O-VIAL) IV SCH (20:53)
[2025-06-22] VITALS (109 sets, daily range): BP systolic 128–202; BP diastolic 53–135; PULSE 84–121; RESP 13–30; TEMP 36.114–37.2; O2SAT 91–100
[2025-06-22 07:07] LABS: BASOPHILS % 0.3 % (0.0-2.0); EOSINOPHILS % 0.0 % (0.0-5.0); HEMATOCRIT. 25.4 % (36.0-48.0); HEMOGLOBIN. 8.4 g/dL (12.0-16.0); LYMPHOCYTES % 8.8 % (20.0-50.0); MEAN PLATELET VOLUME 9.2 fl (7.4-10.4); MONOCYTES % 5.7 % (2.0-8.0); NEUTROPHILS % 85.2 % (40.0-76.0); PLATELET 131 x1000/uL (130-400); RED BLOOD CELL COUNT 2.48 mill/uL (4.2-5.4); RED CELL DISTRIBUTION WIDTH 19.0 % (11.6-14.6)
[2025-06-22 07:32] LABS: UREA NITROGEN BLOOD 51 mg/dL (9-23)
[2025-06-22 07:34] LABS: PHOSPHORUS 5.2 mg/dL (2.5-4.9)
[2025-06-22 08:14] LABS: CREATININE 6.2 mg/dL (0.6-1.0)
[2025-06-22] MEDS: IPRATROPIUM/ALBUTEROL 0.5-3(2.5)MG/3ML NEB HHN PRN (13:53)
[2025-06-22 15:53] LABS: UREA NITROGEN BLOOD 24 mg/dL (9-23)
[2025-06-22 15:54] LABS: CREATININE 3.9 mg/dL (0.6-1.0)
[2025-06-22 15:55] LABS: PHOSPHORUS 3.3 mg/dL (2.5-4.9)
[2025-06-22] MEDS: ONDANSETRON HCL 4MG/2ML INJ IV PRN (22:01)
[2025-06-22] MEDS: OLANZAPINE 10 MG/VIAL IM PRN (22:18)
[2025-06-22 22:34] LABS: BG BASE EXCESS 1.0 mmol/L (-2.0-3.0); BG CARBOXYHEMOGLOBIN 1.4 % (0.5-1.5); BG DEOXYHEMOGLOBIN 7.2 % (0.0-5.0); BG FRACTION INSPIRED OXYGEN 28; BG HCO3 ACT 25.2 mmol/L (21.0-28.0); BG METHEMOGLOBIN 0.3 % (0.5-1.5); BG OXYGEN SATURATION 92.7 % (94.0-98.0); BG OXYHEMOGLOBIN 91.1 % (94.0-98.0); BG PCO2 38.2 mmHg (32.0-45.0); BG PH 7.437 (7.350-7.450); BG PO2 71.9 mmHg (83.0-108.0); BG SAMPLE SITE RIGHT RADIAL; BG TOTAL HEMOGLOBIN 9.4 g/dL (12.0-16.0); BG VENT MODE NASAL CANNULA
[2025-06-23] VITALS (71 sets, daily range): BP systolic 115–187; BP diastolic 48–132; PULSE 66–102; RESP 11–26; TEMP 36.6–37.1; O2SAT 92–100
[2025-06-23] MEDS: CLONIDINE 0.2MG TABLET PO NR (06:14)
[2025-06-23] MEDS ORDERED: HYDRALAZINE HCL 25MG TABLET PO PRN (06:15)
[2025-06-23 07:08] LABS: HEMATOCRIT. 27.5 % (36.0-48.0); HEMOGLOBIN. 8.9 g/dL (12.0-16.0); MEAN PLATELET VOLUME 9.2 fl (7.4-10.4); PLATELET 145 x1000/uL (130-400); RED BLOOD CELL COUNT 2.72 mill/uL (4.2-5.4); RED CELL DISTRIBUTION WIDTH 18.9 % (11.6-14.6)
[2025-06-23 07:13] LABS: UREA NITROGEN BLOOD 36 mg/dL (9-23)
[2025-06-23 07:15] LABS: PHOSPHORUS 4.8 mg/dL (2.5-4.9)
[2025-06-23 07:25] LABS: CREATININE 5.2 mg/dL (0.6-1.0)
[2025-06-23 13:35] LABS: LYMPHOCYTES % MANUAL 18.0 % (20.0-60.0); MONOCYTES % MANUAL 4.0 % (2.0-8.0); NEUTROPHILS % MANUAL 78.0 % (45.0-75.0); PLATELET ESTIMATE NORMAL
[2025-06-23 13:38] LABS: BG BASE EXCESS -3.0 mmol/L (-2.0-3.0); BG CARBOXYHEMOGLOBIN 1.5 % (0.5-1.5); BG DEOXYHEMOGLOBIN 9.1 % (0.0-5.0); BG FLOW(L/min) 3.00 L/min; BG FRACTION INSPIRED OXYGEN 32; BG HCO3 ACT 21.0 mmol/L (21.0-28.0); BG METHEMOGLOBIN 0.3 % (0.5-1.5); BG OXYGEN SATURATION 90.7 % (94.0-98.0); BG OXYHEMOGLOBIN 89.1 % (94.0-98.0); BG PCO2 33.2 mmHg (32.0-45.0); BG PH 7.419 (7.350-7.450); BG PO2 68.1 mmHg (83.0-108.0); BG SAMPLE SITE RIGHT RADIAL; BG TOTAL HEMOGLOBIN 8.6 g/dL (12.0-16.0); BG VENT MODE NASAL CANNULA
[2025-06-23] MEDS ORDERED: OLANZAPINE 10 MG/VIAL IM PRN (15:00)
[2025-06-23] MEDS: MEROPENEM 1G/100ML 100 ML IV SCH (17:18)
[2025-06-24] VITALS (12 sets, daily range): BP systolic 118–189; BP diastolic 58–95; PULSE 69–102; RESP 15–20; TEMP 36.4–37.7; O2SAT 93–99
[2025-06-24 06:31] LABS: INR 1.0
[2025-06-24 06:38] LABS: HEMATOCRIT. 23.8 % (36.0-48.0); HEMOGLOBIN. 7.8 g/dL (12.0-16.0); MEAN PLATELET VOLUME 8.3 fl (7.4-10.4); PLATELET 126 x1000/uL (130-400); RED BLOOD CELL COUNT 2.34 mill/uL (4.2-5.4); RED CELL DISTRIBUTION WIDTH 18.3 % (11.6-14.6)
[2025-06-24 06:57] LABS: UREA NITROGEN BLOOD 63 mg/dL (9-23)
[2025-06-24 07:00] LABS: PHOSPHORUS 6.4 mg/dL (2.5-4.9)
[2025-06-24 07:04] LABS: CREATININE 7.8 mg/dL (0.6-1.0)
[2025-06-24 16:12] LABS: LYMPHOCYTES % MANUAL 6.0 % (20.0-60.0); MONOCYTES % MANUAL 4.0 % (2.0-8.0); NEUTROPHILS % MANUAL 90.0 % (45.0-75.0); PLATELET ESTIMATE SLIGHTLY DECREASED
[2025-06-24] MEDS: MEROPENEM 500MG/50ML 50 ML IV SCH (19:35)
[2025-06-24] MEDS: CARVEDILOL 12.5MG TABLET PO SCH (23:36)
[2025-06-25] VITALS (7 sets, daily range): BP systolic 105–194; BP diastolic 54–79; PULSE 75–108; RESP 16–19; TEMP 36.3–36.8; O2SAT 92–98
[2025-06-25 07:30] LABS: UREA NITROGEN BLOOD 53.0 mg/dL (9-23)
[2025-06-25 07:32] LABS: HEMATOCRIT. 26.2 % (36.0-48.0); HEMOGLOBIN. 8.9 g/dL (12.0-16.0); MEAN PLATELET VOLUME 8.6 fl (7.4-10.4); PLATELET 139 x1000/uL (130-400); RED BLOOD CELL COUNT 2.61 mill/uL (4.2-5.4); RED CELL DISTRIBUTION WIDTH 18.0 % (11.6-14.6)
[2025-06-25 08:01] LABS: CREATININE 6.3 mg/dL (0.6-1.0)
[2025-06-25] MEDS: ISOSORBIDE MONONITRATE 30MG TABLET SR 24HR PO SCH (10:32)
[2025-06-25] MEDS: ASPIRIN 81MG TABLET PO SCH (19:00)
[2025-06-25 19:16] LABS: LYMPHOCYTES % MANUAL 19.0 % (20.0-60.0); MONOCYTES % MANUAL 12.0 % (2.0-8.0); NEUTROPHILS % MANUAL 69.0 % (45.0-75.0); PLATELET ESTIMATE NORMAL
[2025-06-26] VITALS (16 sets, daily range): BP systolic 126–212; BP diastolic 53–111; PULSE 66–90; RESP 16–20; TEMP 36.2–36.7; O2SAT 93–99
[2025-06-26] MEDS: DOXAZOSIN MESYLATE 2MG TABLET PO SCH (20:32)
[2025-06-27] VITALS (7 sets, daily range): BP systolic 113–154; BP diastolic 49–71; PULSE 66–78; RESP 16–20; TEMP 36.2–36.7; O2SAT 95–100
[2025-06-27] MEDS: PREDNISONE 20MG TABLET PO SCH (09:08)
[2025-06-28] VITALS (10 sets, daily range): BP systolic 110–155; BP diastolic 52–78; PULSE 64–84; RESP 18–20; TEMP 36.2–36.6696; O2SAT 97–100
[2025-06-29] VITALS: BP 148/60; PULSE 86; RESP 19; TEMP 36.3; O2SAT 99
[2025-06-29 04:00] VITALS: BP 143/64; PULSE 80; RESP 20; TEMP 36.4; O2SAT 100
[2025-06-29 08:00] VITALS: BP 130/84; PULSE 76; RESP 18; TEMP 37; O2SAT 100
[2025-06-29 12:00] VITALS: BP_SYST 115; BP_SYST 134; BP_DIAS 67; BP_DIAS 75; PULSE 66; PULSE 85; RESP 16; RESP 18; TEMP 36.3; TEMP 36.6; O2SAT 98; O2SAT 99
[2025-06-29] MEDS ORDERED: DOXA2TAB2 MT (12:55)
[2025-06-29] MEDS ORDERED: ASPI-1497 MT (12:55)
[2025-06-29] MEDS ORDERED: PRED5TAB48 MT (12:55)
[2025-06-29] MEDS ORDERED: COR12 MT (12:55)
[2025-06-29] MEDS ORDERED: ISOS30TA91 MT (12:55)
[2025-06-29 16:00] VITALS: BP_SYST 109; BP_SYST 118; BP_DIAS 56; BP_DIAS 79; PULSE 65; PULSE 72; RESP 16; RESP 18; TEMP 36.4; TEMP 36.7; O2SAT 96; O2SAT 97
[2025-06-29 17:14] VITALS: BP 128/74; PULSE 75; RESP 18; TEMP 98
== END 2025-06-29 19:45 | disposition home health service (06) | DRG 870 ==
LOC: ER 02:33 → MICUNO 04:49 → ENRESERV 06:23 → EDBEDREQ 06:25 → 5EST 06-18 21:31 → CVICU 06-21 02:55 → 7WST 06-23 23:35
PROVIDERS: ADMIT Internal Medicine; ATTEND Internal Medicine
PROC: 5A1955Z Respiratory Ventilation, Greater than 96 Consecutive Hours (ICD-10-PCS; principal; 2025-06-13)
PROC: 0BH17EZ Insertion of Endotracheal Airway into Trachea, Via Natural or Artificial Opening (ICD-10-PCS; 2025-06-13)
PROC: 5A1D70Z Performance of Urinary Filtration, Intermittent, Less than 6 Hours Per Day (ICD-10-PCS; 2025-06-13)
PROC: 5A1D70Z Performance of Urinary Filtration, Intermittent, Less than 6 Hours Per Day (ICD-10-PCS; 2025-06-15)
PROC: 5A1D70Z Performance of Urinary Filtration, Intermittent, Less than 6 Hours Per Day (ICD-10-PCS; 2025-06-17)
PROC: 5A1D70Z Performance of Urinary Filtration, Intermittent, Less than 6 Hours Per Day (ICD-10-PCS; 2025-06-19)
PROC: 5A1D70Z Performance of Urinary Filtration, Intermittent, Less than 6 Hours Per Day (ICD-10-PCS; 2025-06-21)
PROC: 5A1D70Z Performance of Urinary Filtration, Intermittent, Less than 6 Hours Per Day (ICD-10-PCS; 2025-06-22)
PROC: 5A1D70Z Performance of Urinary Filtration, Intermittent, Less than 6 Hours Per Day (ICD-10-PCS; 2025-06-24)
PROC: 5A1D70Z Performance of Urinary Filtration, Intermittent, Less than 6 Hours Per Day (ICD-10-PCS; 2025-06-26)
PROC: 5A1D70Z Performance of Urinary Filtration, Intermittent, Less than 6 Hours Per Day (ICD-10-PCS; 2025-06-28)
DX: A41.9 Sepsis, unspecified organism (principal); G93.41 Metabolic encephalopathy; I50.33 Acute on chronic diastolic (congestive) heart failure; N18.6 End stage renal disease; J18.9 Pneumonia, unspecified organism; J96.21 Acute and chronic respiratory failure with hypoxia; G82.50 Quadriplegia, unspecified; R65.21 Severe sepsis with septic shock; J96.22 Acute and chronic respiratory failure with hypercapnia; I21.4 Non-ST elevation (NSTEMI) myocardial infarction; E87.20 Acidosis, unspecified; I13.2 Hypertensive heart and chronic kidney disease with heart failure and with stage 5 chronic kidney disease, or end stage renal disease; J44.1 Chronic obstructive pulmonary disease with (acute) exacerbation; J44.0 Chronic obstructive pulmonary disease with (acute) lower respiratory infection; Z99.2 Dependence on renal dialysis; E11.22 Type 2 diabetes mellitus with diabetic chronic kidney disease; D63.1 Anemia in chronic kidney disease; I16.0 Hypertensive urgency; E83.51 Hypocalcemia; E78.5 Hyperlipidemia, unspecified; I25.10 Atherosclerotic heart disease of native coronary artery without angina pectoris; R13.10 Dysphagia, unspecified; D53.9 Nutritional anemia, unspecified; Z86.73 Personal history of transient ischemic attack (TIA), and cerebral infarction without residual deficits; Z87.891 Personal history of nicotine dependence; Z95.2 Presence of prosthetic heart valve; Z95.5 Presence of coronary angioplasty implant and graft; Z99.81 Dependence on supplemental oxygen
CPT/HCPCS: 31720; 36415; 36600; 71045; 80048; 80051; 80076; 80202; 82375; 82550; 82553; 82805; 82962; 83036; 83605; 83735; 83880; 84100; 84145; 84478; 84484; 85025; 85027; 86705; 86709; 86850; 86900; 87070; 87340; 90935; 92610; 93005; 93970; 94002; 94003; 94070; 94640; 94664; 94760; 96365; 96375; 97162; 97164; 97166; 98960; 99291; A4606; J0360; J0456; J0612; J0692; J0696; J0885; J1650; J1815; J1938; J2185; J2250; J2371; J2405; J2543; J2704; J2919; J3010; J3373; J3475; J3490; J7512; J8597